=== PATIENT | female | born 1980 | race Caucasian/White ===

== ENCOUNTER 2017-03-14 14:03 | Inpatient (IN) | payer BC ==
[2017-03-14 15:00] LABS: Hematocrit 39 % (35-47); Mean Corpuscular HGB Conc 33 g/dl (31-36); Mean Corpuscular Hemoglobin 31 pg (27-31); Mean Corpuscular Volume 92 fL (80-97); Mean Platelet Volume 7 um3 (7.4-10.4); Red Blood Count 4.23 10^6/ul (4.0-5.4); Red Cell Distribution Width 13 % (10.5-15); White Blood Count 6.4 10^3/ul (3.5-10.8)
[2017-03-14 15:02] LABS: Urine Bilirubin Negative (Negative); Urine Glucose Negative (Negative); Urine Nitrite Negative (Negative)
[2017-03-14 15:26] LABS: ALT 11 U/L (7-52); AST 13 U/L (13-39); Albumin 4.7 g/dL (3.2-5.2); Alkaline Phosphatase 58 U/L (34-104); Anion Gap 7 mmol/L (2-11); Blood Urea Nitrogen 12 mg/dL (6-24); CO2 Carbon Dioxide 25 mmol/L (22-32); Calcium 9.7 mg/dL (8.6-10.3); Chloride 104 mmol/L (101-111); EGFR African American 95.5 (>60); EGFR Non-African American 74.2 (>60); Globulin 2.7 g/dL (2-4); Glucose 104 mg/dL (70-100); Potassium 3.8 mmol/L (3.5-5.0); Sodium 136 mmol/L (133-145); Total Protein 7.4 g/dL (6.4-8.9)
[2017-03-14 15:33] LABS: Benzodiazepine Urine Screen None Detected (None Detect)
[2017-03-14 15:54] LABS: Acetaminophen < 15 mcg/mL; Alcohol < 10 mg/dL (<10); Salicylate < 2.50 mg/dL (<30)
[2017-03-14 16:01] LABS: TSH (Thyroid Stimulating Horm) 1.15 mcIU/mL (0.34-5.60)
[2017-03-14] MEDS ORDERED: Nicotine GUM* 2 MG PO PRN (16:34)
--- NOTE | 2017-03-14 18:30 | ED ---
Vida Gonzalez Claudia, scribed for Jostin Rodriguez MD on 03/14/17 at 1454 . Psychiatric Complaint - HPI Summary HPI Summary: 36 year old female presents to the ED with depression and suicidal thoughts. Pt notes that her therapist recommended she come to the ED today. She reports suicidal thoughts but no definite plan. She states for the past few months she hasn't been feeling well, she was manic and then "crashed" on February 06. Pt states her depression has been getting worse. Pt notes she takes Seroquel which helps with her sleeping but otherwise she is unable to sleep. Pt denies cutting , overdosing, no voices in her head or drugs or alcohol. Pt does smoke tobacco. Pt denies CP, SOB,abd pain but admits to some shaky. Pt takes Lamictal, wellbutrin, and levothyroxine daily. - History Of Current Complaint Chief Complaint: [facility] Time Seen by Provider: 03/14/17 14:25 Hx Obtained From: Patient Onset/Duration: Sudden Onset, Still Present Character: Depressed Aggravating Factor(s): Nothing Alleviating Factor(s): Nothing Associated Signs And Symptoms: Negative: Sleep Disturbance, Appetite Change Has Suicidal: Reports: Thoughts - Allergies/Home Medications Allergies/Adverse Reactions: Allergies Allergy/AdvReac Type Severity Reaction Status Date / Time sulfa Allergy Unknown Unknown Uncoded 03/14/17 16:24 Reaction Details Home Medications: Home Medications Bupropion XL* [Wellbutrin XL *] 450 mg PO DAILY 03/14/17 [History Confirmed ] Escitalopram (NF) [Lexapro 20 mg (NF)] 20 mg PO DAILY 03/14/17 [History Confirmed 03/14/17] FLUoxetine CAP* [PROzac CAP*] 40 mg PO DAILY 03/14/17 [History Confirmed ] Levothyroxine TAB* [Synthroid TAB*] 50 mcg PO DAILY 03/14/17 [History Confirmed 03/14/17] Quetiapine Fumarate [Seroquel] 800 mg PO QPM 03/14/17 [History Confirmed ] lamoTRIgine TAB(*) [LaMICtal TAB(*)] 400 mg PO DAILY 03/14/17 [History Confirmed 03/14/17] PMH/Surg Hx/FS Hx/Imm Hx Previously Healthy: Yes Endocrine/Hematology History: Denies: Hx Diabetes Cardiovascular History: Denies: Hx Myocardial Infarction Respiratory History: Denies: Hx Asthma Infectious Disease History: No Infectious Disease History: Denies: Traveled Outside the [place] in Last 30 Days - Family History Family History: Depression - Social History Lives: With Family Alcohol Use: Rare Substance Use Type: Reports: None Smoking Status (MU): Never Smoked Tobacco Review of Systems Constitutional: Negative Eyes: Negative ENT: Negative Cardiovascular: Negative Negative: Chest Pain Respiratory: Negative Negative: Shortness Of Breath Gastrointestinal: Negative Negative: Abdominal Pain Genitourinary: Negative Musculoskeletal: Negative Skin: Negative Neurological: Negative Positive: Depressed All Other Systems Reviewed And Are Negative: Yes Physical Exam - Summary Physical Exam Summary: The patient is well-nourished in no acute distress and in no acute pain. The skin is warm and dry and skin color reflects adequate perfusion. HEENT: The head is normocephalic and atraumatic. The pupils are equal and reactive. The conjunctivae are clear and without drainage. Nares are patent and without drainage. Mouth reveals dry mucous membranes and the throat is without erythema and exudate. Neck is supple with full range of motion and non-tender. Respiratory: Chest is non-tender. Lungs are clear to auscultation and breath sounds are symmetrical and equal. Cardiovascular: Hear is regular rate and rhythm. There is no murmur or rub auscultated. There is no peripheral edema and pulses are symmetrical and equal. Abdomen: The abdomen is soft and non-tender. There are normal bowel sounds heard in all four quadrants and there is no organomegaly palpated. Musculoskeletal: There is no back pain noted. Extremities are non-tender with full range of motion. There is good capillary refill. There is no peripheral edema or calf tenderness elicited. Neurological: Patient is alert and oriented to person, place and time. The patient has symmetrical motor strength in all four extremities. Cranial nerves are grossly intact. Deep tendon reflexes are symmetrical and equal in all four extremities. Psychiatric: The patient is mildly anxious. Triage Information Reviewed: Yes Vital Signs On Initial Exam: Initial Vitals Temp Pulse Resp BP Pulse Ox 98.7 F 108 20 140/84 98 03/14/17 14:03/14/17 14:03/14/17 14:03/14/17 14:03/14/17 14:06 Vital Signs Reviewed: Yes - [place] Coma Scale Coma Scale Total: 15 Diagnostics - Vital Signs Vital Signs Temp Pulse Resp BP Pulse Ox 03/14/17 14:08 98.7 F 102 20 140/84 98 03/14/17 14:06 98.7 F 108 20 140/84 98 - Laboratory Lab Results: Lab Results 03/14/17 03/14/17 03/14/17 Range/Units 14:28 14:28 14:28 WBC 6.4 (3.5-10.8) 10^3/ul RBC 4.23 (4.0-5.4) 10^6/ul Hgb 13.0 (12.0-16.0) g/dl Hct 39 (35-47) % MCV 92 (80-97) fL MCH 31 (27-31) pg MCHC 33 (31-36) g/dl RDW 13 (10.5-15) % Plt Count 281 (150-450) 10^3/ul MPV 7 L (7.4-10.4) um3 Neut % (Auto) 69.3 (38-83) % Lymph % (Auto) 25.6 (25-47) % [place] % (Auto) 4.5 (1-9) % Eos % (Auto) 0.1 (0-6) % Baso % (Auto) 0.5 (0-2) % Absolute Neuts (auto) 4.5 (1.5-7.7) 10^3/ul Absolute Lymphs (auto) 1.6 (1.0-4.8) 10^3/ul Absolute Monos (auto) 0.3 (0-0.8) 10^3/ul Absolute Eos (auto) 0 (0-0.6) 10^3/ul Absolute Basos (auto) 0 (0-0.2) 10^3/ul Absolute Nucleated RBC 0 10^3/ul Nucleated RBC % 0 Sodium 136 (133-145) mmol/L Potassium 3.8 (3.5-5.0) mmol/L Chloride 104 (101-111) mmol/L Carbon Dioxide 25 (22-32) mmol/L Anion Gap 7 (2-11) mmol/L BUN 12 (6-24) mg/dL Creatinine 0.86 (0.51-0.95) mg/dL Est GFR ( Amer) 95.5 (>60) Est GFR (Non-Af Amer) 74.2 (>60) BUN/Creatinine Ratio 14.0 (8-20) Glucose 104 H (70-100) mg/dL Calcium 9.7 (8.6-10.3) mg/dL Total Bilirubin 0.40 (0.2-1.0) mg/dL AST 13 (13-39) U/L ALT 11 (7-52) U/L Alkaline Phosphatase 58 (34-104) U/L Total Protein 7.4 (6.4-8.9) g/dL Albumin 4.7 (3.2-5.2) g/dL Globulin 2.7 (2-4) g/dL Albumin/Globulin Ratio 1.7 (1-3) TSH 1.15 (0.34-5.60) mcIU/mL Beta HCG, Quant < 0.60 mIU/mL Urine Color Yellow Urine Appearance Clear Urine pH 7.0 (5-9) Ur Specific [place] 1.005 L (1.010-1.030) Urine Protein Negative (Negative) Urine Ketones Negative (Negative) Urine Blood Negative (Negative) Urine Nitrate Negative (Negative) Urine Bilirubin Negative (Negative) Urine Urobilinogen Negative (Negative) Ur Leukocyte Esterase Negative (Negative) Urine Glucose Negative (Negative) Salicylates < 2.50 (<30) mg/dL Urine Opiates Screen (None Detect) Acetaminophen < 15 mcg/mL Ur Barbiturates Screen (None Detect) Ur Phencyclidine Scrn (None Detect) Ur Amphetamines Screen (None Detect) U Benzodiazepines Scrn (None Detect) Urine Cocaine Screen (None Detect) U Cannabinoids Screen (None Detect) Serum Alcohol < 10 (<10) mg/dL 03/14/17 Range/Units 14:28 WBC (3.5-10.8) 10^3/ul RBC (4.0-5.4) 10^6/ul Hgb (12.0-16.0) g/dl Hct (35-47) % MCV (80-97) fL MCH (27-31) pg MCHC (31-36) g/dl RDW (10.5-15) % Plt Count (150-450) 10^3/ul MPV (7.4-10.4) um3 Neut % (Auto) (38-83) % Lymph % (Auto) (25-47) % [place] % (Auto) (1-9) % Eos % (Auto) (0-6) % Baso % (Auto) (0-2) % Absolute Neuts (auto) (1.5-7.7) 10^3/ul Absolute Lymphs (auto) (1.0-4.8) 10^3/ul Absolute Monos (auto) (0-0.8) 10^3/ul Absolute Eos (auto) (0-0.6) 10^3/ul Absolute Basos (auto) (0-0.2) 10^3/ul Absolute Nucleated RBC 10^3/ul Nucleated RBC % Sodium (133-145) mmol/L Potassium (3.5-5.0) mmol/L Chloride (101-111) mmol/L Carbon Dioxide (22-32) mmol/L Anion Gap (2-11) mmol/L BUN (6-24) mg/dL Creatinine (0.51-0.95) mg/dL Est GFR ( Amer) (>60) Est GFR (Non-Af Amer) (>60) BUN/Creatinine Ratio (8-20) Glucose (70-100) mg/dL Calcium (8.6-10.3) mg/dL Total Bilirubin (0.2-1.0) mg/dL AST (13-39) U/L ALT (7-52) U/L Alkaline Phosphatase (34-104) U/L Total Protein (6.4-8.9) g/dL Albumin (3.2-5.2) g/dL Globulin (2-4) g/dL Albumin/Globulin Ratio (1-3) TSH (0.34-5.60) mcIU/mL Beta HCG, Quant mIU/mL Urine Color Urine Appearance Urine pH (5-9) Ur Specific [place] (1.010-1.030) Urine Protein (Negative) Urine Ketones (Negative) Urine Blood (Negative) Urine Nitrate (Negative) Urine Bilirubin (Negative) Urine Urobilinogen (Negative) Ur Leukocyte Esterase (Negative) Urine Glucose (Negative) Salicylates (<30) mg/dL Urine Opiates Screen None detected (None Detect) Acetaminophen mcg/mL Ur Barbiturates Screen None detected (None Detect) Ur Phencyclidine Scrn None detected (None Detect) Ur Amphetamines Screen None detected (None Detect) U Benzodiazepines Scrn None detected (None Detect) Urine Cocaine Screen None detected (None Detect) U Cannabinoids Screen Presumptive positive H (None Detect) Serum Alcohol (<10) mg/dL Result Diagrams: 03/14/17 14:28 03/14/17 14:28 Lab Statement: Any lab studies that have been ordered have been reviewed, and results considered in the medical decision making process. Course/Dx - Course Assessment/Plan: MDM: After medical clearance and MHE the pt will be admitted to [facility] ED for further care. She will be an involuntary admit. - Differential Dx/Clinical Impression Differential Diagnosis/HQI/PQRI: Positive: Bipolar Disorder, Depression, Homicidal Ideation, Suicidal Ideation Provider Diagnosis: Depression, Suicidal ideation, Homicidal ideations - Physician Notifications Patient Is Medically Stable For: Psych Evaluation - 2:54 pm Discharge - Discharge Plan Condition: Good Disposition: ADMITTED TO [facility] documentation as recorded by the Vida espinosa Claudia accurately reflects the service I personally performed and the decisions made by Jennifer rhodes Drew, MD.
[2017-03-14] MEDS ORDERED: Nicotine Patch Removal NOTE PATCH OFF SCH (20:00)
[2017-03-14] MEDS ORDERED: Mouth Piece, Nicotine* 1 EACH CARTRIDGE INH ONE (20:00)
[2017-03-14] MEDS ORDERED: LORazepam TAB(*) 0.5 MG PO PRN (21:00)
[2017-03-14] MEDS ORDERED: QUEtiapine TAB* 300 MG PO SCH (21:00)
[2017-03-14] MEDS: Nicotine Inhaler* 10 MG AMP Q2H PRN CRAVING INH (21:11)
[2017-03-14] MEDS: lamoTRIgine TAB(*) 100 MG PO SCH (21:12)
[2017-03-15] MEDS: Levothyroxine TAB* 50 MCG TAB PO SCH (06:00)
[2017-03-15 07:46] LABS: HDL Cholesterol 50.7 mg/dL
[2017-03-15] MEDS ORDERED: Nicotine PATCH 14 MG/24 HR* PATCH TRANSDERM SCH (08:00)
[2017-03-15] MEDS: lamoTRIgine TAB(*) 100 MG PO SCH (09:41)
[2017-03-15] MEDS: Nicotine Inhaler* 10 MG AMP Q2H PRN CRAVING INH (09:42)
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
[2017-03-15] MEDS ORDERED: Lithium Carbonate TAB* 300 MG PO SCH (21:00)
[2017-03-15] MEDS ORDERED: QUEtiapine TAB* 100 MG PO SCH (21:00)
[2017-03-16] MEDS: Levothyroxine TAB* 50 MCG TAB PO SCH (06:10)
[2017-03-16] MEDS: lamoTRIgine TAB(*) 100 MG PO SCH (08:34)
[2017-03-16] MEDS ORDERED: BuPROPion XL* 300 MG TAB.XL PO SCH (09:00)
--- NOTE | 2017-03-16 11:14 | PN ---
[facility]: Group Therapy Note - Service Type Service Type: 08136 Group Psychotherapy - Cognitive Behavioral Group Therapy ( CBT):Patient was attentive and participatory in CBT programming this morning, and remained in good behavioral control. Patient expressed positive insights regarding relevant treatment interventions and goals.
--- NOTE | 2017-03-16 13:38 | PN ---
Subjective - Subjective Service Type: 62976 Hosp care 25 min moderate complexity Subjective: Patient on the phone with family on my approach. Her affect is full and she engages the interview. Patient reports great benefit from groups and reports knowing she needs to employ the coping techniques she's learned during this admission. Patient is future oriented reporting things she will change about her schedule to add MH appts and exercise. She reports fair sleep and appetite. Patient reports no noticeable med side effects as Seroquel continues to be tapered to off and Lamictalistapered to 200mg. Patient denies SI/HI and AH/VH. She was told CPS will be called. Patient responded well and coped with the news without her mood dropping. Patient will have an EKG in the morning to look for decreased QTc from 510 on admission. Objective - Appearance Appearance: Well Developed/Nourished Dysmorphic Features: No Hygiene: Normal Grooming: Well Kept - Behavior Psychomotor Activities: Normal Exhibits Abnormal Movement: No - Attitude and Relatedness Attitude and Relatedness: Cooperative Eye Contact: Good - Speech Quality: Unpressured Latencies: Normal Quantity: Appropriate - Mood Patient's Decription of Mood: "Okay" - Affect Observed Affect: Good Affect Consistent with: Euthymia - Thought Process Patient's Thought Process: Coherent Thought Content: No Passive Wish, No Suicidal Planning, No Homicidal Ideation, No Paranoid Ideation - Sensorium Experiencing Hallucinations: No, Sensorium is Clear Type of Hallucinations: Visual: No, Auditory: No, Command: No - Level of Consciousness Level of Consciousness: Alert Orientation: Yes Intact, Yes Orientated to Time, Yes Orientated to Place, Yes Orientated to Person - Impulse Control Impulse Control: Intact - Insight and Judgement Insight and Judgement: Fair - Group Participation Particating in Group Activities: Yes - Medication Management Medication Management Adherence: Yes Assessment - Assessment Merits Inpatient Hospitalization: For Immediate Safety, For Stabilization Inpatient DSM-IV Dx: 1. Bipolar 1 disorder, MRE depressed w/o PFs. 2. Cannabis use disorder Clinical Impression: 36yo female patient presents to [facility] at behest of her therapist at their intake appt. Patient reports an episode of dru which lasted for months and she reports ended abruptly. She reports quickly "things got dark". Patient reports worsening depressive symptoms and recurrent SI over the last month. Patient reports also HI ideations involving her 4 children. Patient is open to med modification and is med compliant. She is engaged in her MH care. She currently denies SI/HI and AH/VH. Plan - Plan Treatment Plan: Name: WANG STERLING Birthdate: 1980 [id number] PLAN: ------ 1. Continue admission to [facility] for safety and symptom mx. 2. Further taper Seroquel from 300mg to 100mg po qhs for mood stabilization. Plan to discontinue Seroquel on this Monday. 3. Repeat EKG on Monday03/17/17 to monitor for resolution of prolonged QTc noted on 03/15/17 EKG. Likely 2/2 recent residential hx on Seroquel 800mg po daily. 4. Continue Lamictal taper at 200mg po daily; which is down from 400mg daily home dose. 5. Continue to hold Lexapro and Prozac. 6. Will Re-start Wellbutrin XL at 300mg po qam for depressive symptoms as patient reports Wellbutrin the only AD with noted benefit for her. Plan to decrease to 150mg daily prior to discharge. 7. Patient educated that with Bipolar patients, antidepressants can precipitate a manic episode. Patient educated on manic symptoms and instructed to MHC if dru symptoms recur. 8. Mccalla 300mg po daily started for mood stabilization in depressed patients. Plan to uptitrate. Combo therapy with Lamictal associated with better effectiveness treating depressive symptoms and SI/HI. 9. Mccalla level, Thyroid panel, CMP and EKG for tomorrow. 10. Possible discharge Monday afernoon, Family meeting being organized for tomorrow. 11. Patient to participate in milieu activities and groups. Medications: Current Medications Bupropion HCl (Bupropion Xl*) 300 mg PO DAILY [facility] Last Admin: 03/16/17 08:34 Dose: 300 mg Lamotrigine (Lamictal Tab(*)) 300 mg PO DAILY [facility] Last Admin: 03/16/17 08:34 Dose: 300 mg Levothyroxine Sodium (Synthroid Tab*) 50 mcg PO DAILY@0600 [facility] Last Admin: 03/16/17 06:10 Dose: 50 mcg Mccalla Carbonate (Mccalla Carbonate Tab*) 300 mg PO BEDTIME [facility] Last Admin: 03/15/17 20:34 Dose: 300 mg Lorazepam (Ativan Tab(*)) 0.5 mg PO ONCE PRN PRN Reason: ANXIETY Nicotine (Nicotine Inhaler*) 10 mg INH Q2H PRN PRN Reason: CRAVING Last Admin: 03/15/17 09:42 Dose: 10 mg Nicotine Polacrilex (Nicotine Gum*) 2 mg PO Q2H PRN PRN Reason: CRAVING Quetiapine Fumarate (Seroquel Tab*) 200 mg PO BEDTIME [facility] Last Admin: 03/15/17 20:34 Dose: 200 mg - Discharge Plan Discharge Plan: Outpatient Follow Up Outpatient Program: [facility]
[2017-03-16] MEDS ORDERED: BuPROPion XL* 150 MG TAB.XL PO SCH (13:50)
[2017-03-16] MEDS ORDERED: lamoTRIgine TAB(*) 100 MG PO SCH (13:51)
[2017-03-16] MEDS ORDERED: QUEtiapine TAB* 100 MG PO SCH (13:51)
[2017-03-16] MEDS: Lithium Carbonate TAB* 300 MG PO SCH (20:14)
[2017-03-17] MEDS: Levothyroxine TAB* 50 MCG TAB PO SCH (06:13)
[2017-03-17 07:48] VITALS: BP 109/65
[2017-03-17] MEDS: Lithium Carbonate TAB* 300 MG PO SCH (08:13)
--- NOTE | 2017-03-17 15:12 | DS ---
Subjective - Subjective Service Types: 51390 Hosp DC Day Mgmt simple under 30 min Subjective: Patient visible in the milieu, sitting with peers doing art on my approach. Her affect is full and she engages the interview. Patient reports nausea early this morning, but denies vomiting. She reports a cloudy headed sensation that has improved over the day. She reports experiencing this in the past with abrupt discontinuation of Seroquel. Patient on only 100mg of Seroquel last night. Patient reports a discontinuation syndrome usually of only 2 days. She reported feeling good to continue with plan to dc med today and not further extend the taper. Patient again reports great benefit from groups and her overall admission. She reports her has been very supportive. Patient is future oriented about getting home to her family. She reports fair sleep and appetite. Patient denies SI/HI and AH/VH. Patient's CMP today was wnl and her Bella [place] level was low as expected for being day 3 of Bella [place]. She was instructed a level would be needed at her appt with psychiatry she has scheduled in 2weeks. EKG this morning morning shows decreased QTc from 510 on admission to 482. Objective - Appearance Appearance: Thin Framed Dysmorphic Features: No Hygiene: Normal Grooming: Fairly Well Kept - Behavior Psychomotor Activities: Normal Exhibits Abnormal Movement: No - Attitude and Relatedness Attitude and Relatedness: Cooperative Eye Contact: Good - Speech Quality: Unpressured Latencies: Normal Quantity: Appropriate - Mood Patient's Decription of Mood: "Good" - Affect Observed Affect: Euphoric Affect Consistent with: Euthymia - Thought Process Patient's Thought Process: Coherent Thought Content: No Passive Wish, No Suicidal Planning, No Homicidal Ideation, No Paranoid Ideation - Sensorium Experiencing Hallucinations: No, Sensorium is Clear Type of Hallucinations: Visual: No, Auditory: No, Command: No - Level of Consciousness Level of Consciousness: Alert Orientation: Yes Intact, Yes Orientated to Time, Yes Orientated to Place, Yes Orientated to Person - Impulse Control Impulse Control: Intact - Insight and Judgement Insight and Judgement: Good - Group Participation Particating in Group Activities: Yes - Medication Management Medication Management Adherence: Yes Treatment Course & Assessment Clinical Course & Impression: HOSPITAL COURSE: 36yo female patient presents to [facility] at behest of her therapist at their intake appt. Patient reports an episode of dru which lasted for months and she reports ended abruptly. Patient sudden and worsening depressive symptoms and recurrent SI which started last month. Patient reported also in this time, Homicidal ideations involving her 4 children. Patient is open to med modification and is med compliant. She is engaged in her MH care. Patient had no psychotic symptoms. Patient admitted on an extraordinary psychotropic med regimen. She was compliant with: Bupropion 450 mg PO DAILY, Lamictal 400 mg PO DAILY, Lexapro 20mg daily, and Seroquel 800mg daily. On night 1, patient's dose of Seroquel decreased to 600mg, Lamictal was dropped to 300mg, Lexapro was discontinued and Bupropion was dropped to 300mg. Patient reported no s/e or med w/d symptoms. On night 2, Seroquel was dropped to 300mg as patient's EKG was noted to have a QTc of 510. Lamictal continued at 300mg, Bupropion was continued at 300mg, Bella [place] was started at 300mg po qhs. On night 3, Seroquel was dropped to 100mg qhs, Trazodone 100mg po qhs started for concerns of insomnia. Bella [place] uptitrated to 300mg po BID, Lamictal dropped to 200mg daily, and Wellbutrin dropped to 150mg daily. Patient tolerated med modification well. EKG on day of discharge showed NSR, QTc down to 482. On day of discharge, patient reported nausea and cloudy headedness, but noted it was her recognized Seroquel discontinuation syndrome symptoms. She was amenable to dc Seroquel and not lengthen the taper. Patient's CMP was wnl, and Bella [place] level low as expected at day 3 of administration. She was educated on need for Bella [place] level and CMP at psychiatry appt scheduled at [facility] in ~10 days. She was educated that in patient with Bipolar d/o, multiple antidepressant therapy can ppt dru. Pt educated on signs of dru and patient able to recognize behaviors that may be prodromal to manic phase. Patient is future oriented regarding family and implementing skills learned on admission. She was psychiatrically stable. She denied SI&HI since admission to unit. She will be transported home by her . DISCHARGE MEDS: Bupropion HCl (Wellbutrin Xl *) 150 mg PO DAILY [facility] Lamotrigine (Lamictal Tab(*)) 200 mg PO DAILY [facility] Levothyroxine Sodium (Synthroid Tab*) 50 mcg PO DAILY@0600 [facility] Bella [place] Carbonate (Bella [place] Carbonate Tab*) 300 mg PO BID [facility] Trazodone HCl (Desyrel Tab*) 100 mg PO BEDTIME [facility] CONSULTANTS: NONE FOLLOW-UP appts: [facility] psychiatrist and psychotherapy appt scheduled for in ~10 days. Patient acknowledges understanding Bella [place] level is to be drawn to ensure patient w/in therapeutic levels. Clear for Discharge: Adequate Clinical Respons, Acceptable Safety Profile Inpatient DSM-IV Dx: 1. Bipolar 1 disorder, MRE depressed w/o PFs. 2. Cannabis use disorder Discharge Planning - Discharge Planning Discharge Plan: Outpatient Follow Up Outpatient Program: [facility] Recommendations for Continuing Care: Psychotherapy Medications: Current Medications Bupropion HCl (Wellbutrin Xl *) 150 mg PO DAILY [facility] Lamotrigine (Lamictal Tab(*)) 200 mg PO DAILY [facility] Levothyroxine Sodium (Synthroid Tab*) 50 mcg PO DAILY@0600 [facility] Bella [place] Carbonate (Bella [place] Carbonate Tab*) 300 mg PO BID [facility] Trazodone HCl (Desyrel Tab*) 100 mg PO BEDTIME [facility] Discharge Planning: Prescriptions provided for discharge [x] Yes [] No Follow up care details as per social work arrangements. Patient response to discharge plan: [] eager for discharge [x] agreeable with discharge plan [] ambivalent about discharge [] disagrees with discharge today
[2017-03-17 15:34] LABS: Albumin 4.8 g/dL (3.2-5.2); BUN/Creatinine Ratio 13.8 (8-20); Calcium 10.2 mg/dL (8.6-10.3); EGFR African American 103.8 (>60); EGFR Non-African American 80.7 (>60); Globulin 2.9 g/dL (2-4); Potassium 4.7 mmol/L (3.5-5.0); Total Bilirubin 0.5 mg/dL (0.2-1.0); Total Protein 7.7 g/dL (6.4-8.9)
[2017-03-17 15:47] LABS: Lithium 0.26 mmol/L (0.6-1.2)
[2017-03-17 17:03] LABS: TSH (Thyroid Stimulating Horm) 1.97 mcIU/mL (0.34-5.60)
[2017-03-17 17:12] LABS: Free T4 0.88 ng/dL (0.61-1.12)
[2017-03-17] MEDS ORDERED: traZODone TAB* 100 MG PO SCH (21:00)
== END 2017-03-17 16:48 | disposition home or self-care (01) | DRG 753 ==
LOC: ED 14:03 → BSU 17:12
PROVIDERS: ADMIT Psychiatry & Neurology Psychiatry; ATTEND Psychiatry & Neurology Psychiatry
DX: F31.30 Bipolar disorder, current episode depressed, mild or moderate severity, unspecified (principal); F12.10 Cannabis abuse, uncomplicated; Z88.2 Allergy status to sulfonamides; Z81.1 Family history of alcohol abuse and dependence; Z84.89 Family history of other specified conditions
CPT/HCPCS: 36415; 80053; 80061; 80175; 80178; 80307; 80320; 80329; 81003; 83036; 84439; 84443; 84480; 84702; 85025; 86376; 90853; 93005; 99222; 99232; 99238; A9270-GY; G0480

== ENCOUNTER → 2017-03-21 12:15 | Emergency (ER) | payer BC ==
[2017-03-21 14:17] VITALS: BP 114/72
--- NOTE | 2017-03-21 16:32 | ED ---
Clara Gonzalez Thomas, scribed for Cole Patino MD on 03/21/17 at 1338 . Complex/Multi-Sys Presentation - HPI Summary HPI Summary: Pt is a 36 y/o F presenting to the ED c/o generalized illness after she discontinued Seroquel, which she was on 800mg for 10 years. Seven days ago, the pt was admitted to [facility] for three days after she experienced a Bipolar episode. During her admission to [facility], she was treated by Dr. Garcia, psychiatry, and was discontinued from Seroquel as a result of Long QT Syndrome. Following her discharge, the pt reports generalized illness as a result of discontinuing Seroquel. Her Sx include "feeling mentally out of it", nausea, stomach cramps, vomiting, diarrhea, and chills. Her Sx have improved since yesterday, which she attributes to her taking of Seroquel last night. Her Sx are alleviated by continuing to take Seroquel. When she was discharged and removed from Seroquel three days ago, she described her condition as unbearable. She was referred to the ED after seeing her PCP today and explaining her history detailed above. Yesterday, she took 200mg Seroquel in the afternoon and 100mg at night. - History Of Current Complaint Chief Complaint: EDGeneral Time Seen by Provider: 03/21/17 13:32 Hx Obtained From: Patient Onset/Duration: Lasting Days - last Monday Timing: Constant Alleviating Factor(s): Continuing to take Seroquel Associated Signs And Symptoms: Positive: Nausea, Vomiting, Diarrhea, Other - POS : stomach cramps, chills, "feeling mentally out of it" - Allergies/Home Medications Allergies/Adverse Reactions: Allergies Allergy/AdvReac Type Severity Reaction Status Date / Time sulfa Allergy Unknown Unknown Uncoded 03/14/17 16:24 Reaction Details PMH/Surg Hx/FS Hx/Imm Hx Previously Healthy: No Endocrine/Hematology History: Denies: Hx Diabetes, Hx Thyroid Disease, Hx Unexplained Bleeding Cardiovascular History: Denies: Hx Hypertension, Hx Myocardial Infarction, Hx Pacemaker/ICD Respiratory History: Denies: Hx Asthma, Hx Pulmonary Embolism GI History: Denies: Hx Gastroesophageal Reflux Disease History: Denies: Hx Kidney Stones Sensory History: Denies: Hx Contacts or Glasses, Hx Hearing Aid Opthamlomology History: Denies: Hx Contacts or Glasses Neurological History: Denies: Hx Headaches, Hx Migraine, Hx Seizures Psychiatric History: Reports: Hx Bipolar Disorder - Dx Bipolar II Denies: Hx Eating Disorder, Hx of Violent Episodes Against Others Infectious Disease History: No Infectious Disease History: Denies: Traveled Outside the [place] in Last 30 Days - Family History Known Family History: Positive: Other - POS: depression Family History: Depression - Social History Alcohol Use: None Substance Use Type: Reports: None Smoking Status (MU): Never Smoked Tobacco Review of Systems Constitutional: Negative Eyes: Negative ENT: Negative Cardiovascular: Negative Respiratory: Negative Positive: Vomiting, Diarrhea, Nausea, Other - POS: stomach cramps Genitourinary: Negative Musculoskeletal: Negative Skin: Negative Neurological: Negative Positive: Other - POS: "feeling mentally out of it" All Other Systems Reviewed And Are Negative: Yes Physical Exam Triage Information Reviewed: Yes Vital Signs On Initial Exam: Initial Vitals Temp Pulse Resp BP Pulse Ox 97.6 F 93 18 165/72 100 03/21/17 12:18 03/21/17 12:18 03/21/17 12:18 03/21/17 12:18 03/21/17 12:18 Vital Signs Reviewed: Yes Appearance: Positive: Well-Appearing, No Pain Distress Skin: Positive: Warm, Skin Color Reflects Adequate Perfusion, Dry Head/Face: Positive: Normal Head/Face Inspection Eyes: Positive: Normal ENT: Positive: Normal ENT inspection Neck: Positive: Supple, Nontender Respiratory/Lung Sounds: Positive: Clear to Auscultation, Breath Sounds Present Cardiovascular: Positive: RRR Abdomen Description: Positive: Nontender, Soft Bowel Sounds: Positive: Present Musculoskeletal: Positive: Normal Neurological: Positive: Normal, Sensory/Motor Intact, Alert, Oriented to Person Place, Time, CN Intact II-III Psychiatric: Positive: Normal, Affect/Mood Appropriate Diagnostics - Vital Signs Vital Signs Temp Pulse Resp BP Pulse Ox 03/21/17 12:21 97.6 F 89 18 165/72 100 03/21/17 12:18 97.6 F 93 18 165/72 100 - Laboratory Lab Statement: Any lab studies that have been ordered have been reviewed, and results considered in the medical decision making process. - EKG 14:15 Cardiac Rate: NL - 74 BPM EKG Interpretation: NSR. QTC 450 Re-Evaluation - Re-Evaluation First Eval Re-Evaluation Time: 14:30 Change: Unchanged Complex Multi-Symp Course/Dx Course Of Treatment: Ms. Asher Pierre presented concerned that she had stopped seroquel to abruptly. She had been having shills and N/V/D for several days until she took 300 of seroquel yesterday and feels a bit better today. I spoke with Dr. Garcia who took care of her in the hospital last week and he agreed that the taper was likely too abrupt and recommended going back on it and tapering slowly. - Diagnoses Provider Diagnoses: Medication withdrawal - Physician Notifications Discussed Care Of Patient With: Ahsan Garcia Time Discussed With Above Provider: 14:32 Instructed by Provider To: Other - Discussed patient Discharge - Discharge Plan Condition: Stable Disposition: HOME Prescriptions: QUEtiapine TAB* [SEROquel TAB*] 100 mg PO BEDTIME #45 tab Referrals: [facility] [Outside] - 3 Days Additional Instructions: Continue to take medication as directed. Follow up with your [facility]. The documentation as recorded by the Clara espinosa Thomas accurately reflects the service I personally performed and the decisions made by me, Cole Patino MD.
== END | disposition home or self-care (01) ==
LOC: ED 12:15
DX: F19.939 Other psychoactive substance use, unspecified with withdrawal, unspecified (principal); F31.9 Bipolar disorder, unspecified; Z88.2 Allergy status to sulfonamides
CPT/HCPCS: 93005